=== PATIENT | male | born 1970 | race Caucasian/White ===

== ENCOUNTER → 2017-04-09 | Day surgery (SDC) | payer OTHER ==
--- NOTE | 2017-04-08 21:55 | MH ---
cc: KINGSLEY ALMANZA M.D. DATE OF ADMISSION 04/09/2017 ADMISSION DIAGNOSIS Herniated nucleus pulposus lumbar spine. HISTORY This patient is a 46-year-old white male who sustained a work-related injury on December 24, 2016. He has worked for this company for a prolonged time and was helping to assist staff by moving his self recliner. He fell some soreness but then developed severe spasms and pain extending down to the right leg. He was seen at a local hospital and was given medications. He came under my care in January of this year. Investigative studies shows evidence of a soft disk herniation to the right at the L4-L5 level extending below the disk space creating a moderate to high-grade lateral recess stenosis. The physical examination consistent with the right L5 radiculopathy. Despite conservative care he is still painful and I recommend surgical treatment. PAST MEDICAL HISTORY, SOCIAL HISTORY AND FAMILY HISTORY Some see attached notes. REVIEW OF SYSTEMS See attached notes. PHYSICAL EXAMINATION VITAL SIGNS: 5 feet 11 inches, 210 pounds. BMI 29.3. Blood pressure 122/86. HEENT: Normocephalic, atraumatic. Pupils equal, round, reactive to light and accommodation. Extraocular motions intact. NECK: Supple. CHEST: Clear. HEART: Regular rate and rhythm. ABDOMEN: Soft, nontender, normoactive sounds. MUSCULOSKELETAL: Thoracolumbar spine restricted motion, pain with range of motion. He walks with an antalgic gait as stooped forward. Moderate spasm is seen. Straight leg raising is positive on the right. There is weakness of the extensor hallucis longus. IMPRESSION 1. Herniated nucleus pulposus L4-5 central, right. 2. Lumbar spinal stenosis. 3. Right lumbar radiculopathy. PLAN Lumbar laminectomy right L4, L5, lateral recess decompression, resection herniated nucleus pulposus, use of dilation port and microscope. CONSENT The risks of surgery including infection, bleeding, loss of motion, continued pain, need for further surgery, neurologic and vascular injury. The patient understands these issues and wishes to press on with surgery as outlined above. MD MARÍA ELENA Page/MARGOT /6:21 PM /9:41 PM NOMI
[~2017-04-09] VITALS: Ht 180.3 cm; Wt 92.6 kg
[~2017-04-09] MED LIST: *HYDROmorphone PF 1 MG VIAL PERIprocedural Use ONLY ONE; *ONDANSETRON 4 MG VIAL PERIprocedural Use ONLY ONE; *PROMETHAZINE 25 MG/ML VIAL PERIprocedural use ONLY ONE; *morphine SULFATE 8 MG/ML PERIprocedure ONLY ONE; BETAMETHASONE SOD PHOS/ACETATE SUSP 30 MG/5 ML VIAL OTHER ONE; BUPIVACAINE HCL PF 0.25% 30 ML VIAL ONE; BUPIVACAINE/EPINEPHRINE 0.5% PF 30 ML VIAL ONE; CHLORHEXIDINE GLUCONATE 2 % 1 PACK (2 CLOTHS) TOPICAL PRN; DEXAMETHASONE SOD PHOS 4 MG/ML VIAL ONE; DO NOT ADM ANY ANTICOAGULANT DRUGS PRN; FAMOTIDINE 20 MG/2 ML VIAL ONE; GELATIN 12 MM/7 MM FOAM ONE; GENTAMICIN SULFATE 80 MG/2 ML VIAL ONE; HYDR-3288 PO; INSULIN HUMAN REGULAR 1,000 UNITS/10 ML VIAL SQ PRN; KETOROLAC TROMETHAMINE 60 MG/2 ML (IM) VIAL IM ONE; LACTATED RINGER'S 1000 ML IV PRN; METOPROLOL TARTRATE 25 MG TAB PO PRN; MIDAZOLAM HCL 2 MG/2 ML VIAL ONE; MOBI7.5T PO; MORPHINE SULFATE 4 MG/ML INJ IV PRN; NEOSTIGMINE 3 MG/3 ML SYR IV ONE; NEUR300C PO; ONDANSETRON HCL 4 MG/2 ML VIAL IV PUSH ONE; OXYC-392 PO; POVIDONE IODINE 5% (ANTISEPSIS KIT) 4 APPLICATIONS EACH NARE PRN; POVIDONE IODINE 7.5% SCRUB 118 ML BOTTLE TOPICAL SCH; PROPOFOL 200 MG/20 ML AMP IV ONE; SODIUM CHLORID 0.9% 500 ML IV PRN; SOMA350T PO; ceFAZolin 2 GM PREMIX 50 ML IV SCH; ePHEDrine/NS 25 MG/5 ML SYR IV ONE; fentaNYL CITRATE 250 MCG/5 ML AMP ONE; oxyCODONE/ACETAMINOPHEN 5 MG/325 MG TAB PO PRN
--- NOTE | 2017-04-09 13:09 | PD.OP ---
cc: Salvador Last MD Operative Report Date of Surgery: Apr 09, 2017 Preoperative Diagnosis: Herniated nucleus pulposus L4 5, right. Lumbar spinal stenosis. Right lumbosacral radiculopathy Postoperative Diagnosis: Same Procedure: Right lumbar laminectomy, lateral recess decompression, resection herniated nucleus pulposus, use of dilation port and microscope Anesthesia: Gen. Surgeon: Salvador Last Oracle Manager(s): CARMEN Nunez Operation and Findings: EBL: 50 cc INDICATION: Patient is a 46-year-old male with significant right hip and leg pain. Investigative studies show evidence of a disc herniation with a moderate to high-grade stenosis L4 5 central and to the right. There is a fragment of disc at and below the disc space with compression upon the crossing right L5 nerve root. He presents for surgical treatment NOTE: Laine Nunez PA-C was present for the entire surgical procedure as my automotive parts counter assistant. In my medical opinion her skill and care was necessary for the proper management of this patient. PROCEDURE: The patient was brought to the operating room and anesthetized in the supine position. The patient was rolled to a prone position on a Angel frame on a Flaco table. All pressure points were protected in the back was scrubbed with alcohol followed by Hibiclens followed by ChloraPrep and draped sterilely. A timeout was done and antibiotics were given. AP and lateral radiographic images were used to identify the proper levels and perform skin markings. We started from the right side at the L4 5 level. A paramedian incision was made and an off-midline fascial incision was made. A dilating system was placed down to the interlaminar space and held provisionally to the side of the table. The microscope was brought into the field. A high-speed bur under the microscope was used to perform a predominantly right sided laminectomy from that side. A lateral recess decompression on the right side was accomplished using straight and angled Kerrison punches. A partial medial facetectomy was accomplished. The crossing and exiting nerve roots were completely decompressed. The wound was irrigated copiously. A small piece of Gelfoam with Celestone was placed into the epidural space. Hemostasis was controlled. The deep fascia was approximated with interrupted 0 Vicryl suture subcutaneous suture with 2-0 Vicryl suture and skin with running intradermal 3-0 Vicryl followed by Dermabond. A field block with local anesthesia was utilized. A sterile dressing was applied. The sponge count and needle counts and instrument counts were all correct. The patient tolerated the procedure well as taken to the recovery room in satisfactory condition. FINDINGS: There was evidence of the sequestered disc herniation at and just below the disc space centrally and to the right creating significant right L5 nerve root compromise. The right L5 nerve root was significantly entrapped in scar tissue adjacent to the inferior annulus. This was resected allowing complete mobilization of the L5 nerve root. There was no nerve root compression at the end of the procedure. No complication was appreciated. Salvador Last MD Apr 09, 2017 13:09
--- NOTE | 2017-04-09 15:14 | RADRPT ---
EXAM DATE/TIME: 04/09/2017 12:07 [facility] COMPARISON: FLUOROSCOPY PORTABLE UP TO 1HR, April 09, 2017, 0:00. INDICATIONS : L4-5 Laminectomy. MEDICAL HISTORY : None. SURGICAL HISTORY : None. ENCOUNTER: Initial ACUITY: 1 day PAIN SCORE: Non-responsive. LOCATION: Lumbar spine. FINDINGS: Single lateral spine for level localization demonstrates localization to the L4/5 level. CONCLUSION: Localization above the L4/5 level. Evaristo Rosenberg MD on April 09, 2017 at 15:11 Board Certified Radiologist. This report was verified electronically.
[2017-04-09 16:00] VITALS: BP 115/72; PULSE 62; RESP 16; TEMP 98.1; O2SAT 94
== END | disposition home or self-care (01) ==
LOC: HSDC 07:51
PROVIDERS: ATTEND Orthopaedic Surgery Orthopaedic Surgery of the Spine
DX: M51.16 Intervertebral disc disorders with radiculopathy, lumbar region (principal); M48.06 Spinal stenosis, lumbar region; F17.200 Nicotine dependence, unspecified, uncomplicated; G62.9 Polyneuropathy, unspecified; Z86.73 Personal history of transient ischemic attack (TIA), and cerebral infarction without residual deficits; Z91.018 Allergy to other foods
CPT/HCPCS: 00630; 63030; 72020; 76000; 94150; J0690; J0702; J1100; J1170; J1580; J1885; J2250; J2270; J2405; J2550; J2710; J3010